=== PATIENT | female | born 1965 | race Caucasian/White ===

== ENCOUNTER → 2018-08-23 | Outpatient (CLI) | payer BC ==
[~2018-08-23] MED LIST: LIPITOR20 MG
== END ==
LOC: MC.RAD 10:56
DX: Z12.31 Encounter for screening mammogram for malignant neoplasm of breast (principal)

== ENCOUNTER → 2019-08-09 | Outpatient (CLI) | payer BC | LOC: MC.RAD 10:02 | DX: Z12.31 Encounter for screening mammogram for malignant neoplasm of breast (principal) ==

== ENCOUNTER 2020-07-02 12:56 | Outpatient (CLI) | payer BC ==
[~2020-07-02] VITALS: Ht 162.6 cm; Wt 64.8 kg
[2020-07-02] MEDS ORDERED: LIPITOR 10MG10 MG PO (13:20)
[2020-07-02] MEDS ORDERED: VITAMIN D31000 I1 PO (13:21)
[2020-07-02] MEDS ORDERED: PEPCID 20MG TAB20 MG PO (13:21)
[2020-07-02] MEDS ORDERED: MELATIN 3 MG-11 TAB PO (13:22)
[2020-07-02] MEDS ORDERED: TYLENOL 325MG325 MG PO (13:22)
[2020-07-02 14:00] VITALS: BP 106/72; PULSE 65; TEMP 98.1
== END 2020-07-02 14:01 | disposition home or self-care (01) ==
LOC: EUO 12:56
DX: M81.0 Age-related osteoporosis without current pathological fracture (principal); Z79.899 Other long term (current) drug therapy
CPT/HCPCS: J3489

== ENCOUNTER → 2020-07-09 | Outpatient (CLI) | payer BC ==
[~2020-07-09] MED LIST changes: +LIPITOR 10MG10 MG PO; +MELATIN 3 MG-11 TAB PO; +PEPCID 20MG TAB20 MG PO; +TYLENOL 325MG325 MG PO; +VITAMIN D31000 I1 PO
== END ==
LOC: MC.RAD 08:05
DX: Z12.31 Encounter for screening mammogram for malignant neoplasm of breast (principal)

== ENCOUNTER 2021-07-02 14:51 | Outpatient (CLI) | payer BC ==
[~2021-07-02] VITALS: Ht 162.6 cm; Wt 68.9 kg
[2021-07-02 15:30] VITALS: BP 112/65; PULSE 72; TEMP 98.5
== END 2021-07-02 16:05 | disposition home or self-care (01) ==
LOC: EUO 14:51
DX: M81.0 Age-related osteoporosis without current pathological fracture (principal)
CPT/HCPCS: J3489

== ENCOUNTER → 2021-08-20 | Outpatient (CLI) | payer BC | LOC: MC.RAD 08-01 09:15 | DX: Z12.31 Encounter for screening mammogram for malignant neoplasm of breast (principal) ==

== ENCOUNTER → 2021-11-22 | Outpatient (CLI) | payer BC | LOC: ZCOL.LAB 15:01 | DX: Z20.822 Contact with and (suspected) exposure to COVID-19 (principal) ==

== ENCOUNTER → 2022-06-27 | Outpatient (CLI) | payer BC | LOC: MC.RAD 07:55 | DX: Z12.31 Encounter for screening mammogram for malignant neoplasm of breast (principal) ==

== ENCOUNTER 2022-07-24 14:50 | Outpatient (CLI) | payer BC ==
[~2022-07-24] VITALS: Ht 162.6 cm; Wt 65.9 kg
[2022-07-24 15:31] VITALS: BP 136/74; PULSE 73; TEMP 98.4
== END 2022-07-24 16:59 | disposition home or self-care (01) ==
LOC: EUO 14:50
DX: M81.0 Age-related osteoporosis without current pathological fracture (principal)
CPT/HCPCS: J3489

== ENCOUNTER 2023-07-30 13:45 | Outpatient (CLI) | payer BC ==
[~2023-07-30] VITALS: Ht 162.6 cm; Wt 69.2 kg
[2023-07-30 14:33] VITALS: BP 122/77; PULSE 72; TEMP 98.2
== END 2023-07-30 14:53 | disposition home or self-care (01) ==
LOC: EUO 13:45
DX: M81.0 Age-related osteoporosis without current pathological fracture (principal)
CPT/HCPCS: J3489

== ENCOUNTER → 2023-08-19 | Outpatient (CLI) | payer BC | LOC: CANSCHCLI → MC.RAD 09:09 | DX: Z12.31 Encounter for screening mammogram for malignant neoplasm of breast (principal) ==

== ENCOUNTER 2024-08-24 14:57 | Outpatient (CLI) | payer BC ==
[~2024-08-24] VITALS: Ht 162.6 cm; Wt 71.3 kg
[2024-08-24 15:05] VITALS: BP 115/78; PULSE 78; TEMP 98.3
--- NOTE | 2024-08-24 15:56 | NUR ---
PT TOLERATED INFUSION WELL. VS REMAINED WITHIN NORMAL LIMITS. PT AMBULATED INDEPENDENTLY TO [facility] UPON DISCHARGE. IV DISCONTINUED. PT FREE FROM ACUTE CONCERNS AND COMPLAINTS.
== END 2024-08-24 15:58 | disposition home or self-care (01) ==
LOC: EUO 14:57
DX: M81.0 Age-related osteoporosis without current pathological fracture (principal)
CPT/HCPCS: J3489

== ENCOUNTER → 2024-08-24 | Outpatient (CLI) | payer BC | LOC: MC.RAD 10:48 | DX: Z12.31 Encounter for screening mammogram for malignant neoplasm of breast (principal) ==